=== PATIENT | female | born 1960 | race Caucasian/White ===

== ENCOUNTER 2024-05-22 00:18 | Emergency (ER) | payer MEDICAID, MEDICARE ==
[~2024-05-22] VITALS: Ht 157.5 cm; Wt 78.0 kg
[2024-05-22 00:21] VITALS: O2SAT 97
[2024-05-22] MEDS: MORPHINE SULFATE 4 MG/ML INJ (FOR IV/IM USE) IV STA (00:31)
[2024-05-22 01:53] LABS: BASOPHILS % 0.4 % (0.0-2.0); EOSINOPHILS % 1.6 % (0.0-5.0); HEMATOCRIT. 30.6 % (36.0-48.0); MEAN CORPUSCULAR HEMOGLOBIN 28.4 pg (28.0-32.0); MEAN CORPUSCULAR HGB CONC 32.6 g/dL (31.0-37.0); MEAN CORPUSCULAR VOLUME 87.1 fL (81.0-99.0); MEAN PLATELET VOLUME 8.5 fl (7.4-10.4); MONOCYTES % 8.2 % (2.0-8.0); NEUTROPHILS % 68.8 % (40.0-76.0); PLATELET 191 x1000/uL (130-400); RED BLOOD CELL COUNT 3.51 mill/uL (4.2-5.4); RED CELL DISTRIBUTION WIDTH 15.8 % (11.6-14.6); WHITE BLOOD COUNT 11.2 x1000/uL (4.5-11.0)
[2024-05-22 01:58] LABS: CHLORIDE 101 mEq/L (98-107); POTASSIUM 4.5 mEq/L (3.5-5.1); SODIUM 135 mEq/L (136-145)
[2024-05-22 01:59] LABS: CALCIUM 9.1 mg/dL (8.7-10.4); CARBON DIOXIDE 28 mEq/L (21-32)
[2024-05-22 02:04] LABS: CREATININE 1.3 mg/dL (0.6-1.0); GLUCOSE 224 mg/dL (70-105); UREA NITROGEN BLOOD 38 mg/dL (9-23)
[2024-05-22 02:05] LABS: TROPONIN I HIGH SENSITIVITY 13 ng/L (3.0-34)
[2024-05-22 02:06] LABS: ETHANOL BLOOD < 10 mg/dL (<10)
[2024-05-22 02:33] LABS: INR 0.9; PROTHROMBIN TIME 10.4 sec (9.6-11.0)
[2024-05-22 04:37] LABS: TROPONIN I HIGH SENSITIVITY 13 ng/L (3.0-34)
[2024-05-22] MEDS ORDERED: IOHEXOL-300 100 ML BOTTLE ONE (04:48)
[2024-05-22] MEDS: MORPHINE SULFATE 4 MG/ML INJ (FOR IV/IM USE) IV ONE (05:56)
[2024-05-22 11:28] LABS: BG BASE EXCESS 1.9 mmol/L (-2.0-3.0); BG CARBOXYHEMOGLOBIN 0.9 % (0.5-1.5); BG DEOXYHEMOGLOBIN 3.8 % (0.0-5.0); BG FRACTION INSPIRED OXYGEN 28; BG HCO3 ACT 27.9 mmol/L (21.0-28.0); BG METHEMOGLOBIN 0.3 % (0.5-1.5); BG OXYGEN SATURATION 96.2 % (94.0-98.0); BG PCO2 50.6 mmHg (32.0-45.0); BG PO2 86.9 mmHg (83.0-108.0); BG SAMPLE SITE RIGHT BRACHIAL; BG TOTAL HEMOGLOBIN 10.6 g/dL (12.0-16.0); BG VENT MODE NASAL CANNULA
[2024-05-22 11:41] LABS: CLARITY URINE CLOUDY (CLEAR); COLOR URINE YELLOW (YELLOW); GLUCOSE URINE NEGATIVE (NEGATIVE); KETONES URINE NEGATIVE (NEGATIVE); LEUKOCYTE ESTERASE URINE 2+ (NEGATIVE); NITRITE URINE NEGATIVE (NEGATIVE); OCCULT BLOOD URINE NEGATIVE (NEGATIVE); PH URINE 5.5 (4.5-8.0); PROTEIN URINE 1+ (NEGATIVE); SPECIFIC GRAVITY URINE 1.023 (1.005-1.030); UROBILINOGEN URINE 0.2 E.U./dL (0.2-1.0)
[2024-05-22] MEDS: DEXT 5%/0.45% NACL 1000ML 1,000 ML IV ONE (11:52)
[2024-05-22 11:58] LABS: *AMPHETAMINES SCREEN URINE NEGATIVE (NEGATIVE); *BARBITURATES SCREEN URINE NEGATIVE (NEGATIVE); *BENZODIAZEPINES SCREEN URINE PRESUMPTIVE POSITIVE (NEGATIVE); *COCAINE SCREEN URINE NEGATIVE (NEGATIVE); METHADONE URINE SCREEN NEGATIVE (NEGATIVE)
[2024-05-22 11:59] LABS: CANNABINOID URINE SCREEN NEGATIVE (NEGATIVE); ECSTASY MDMA SCREEN URINE NEGATIVE (NEGATIVE); OPIATES URINE SCREEN PRESUMPTIVE POSITIVE (NEGATIVE); PHENCYCLIDINE URINE SCREEN NEGATIVE (NEGATIVE)
[2024-05-22 12:14] LABS: BACTERIA URINE 4+; SQUAMOUS EPITHELIAL CELL URINE 1+ /lpf (RARE/1+)
[2024-05-22 12:16] LABS: WBC URINE 15-25 /hpf (0-2)
[2024-05-22 12:17] LABS: RBC URINE 0-2 /hpf (0-2)
[2024-05-22 14:00] VITALS: BP 129/62; PULSE 64; RESP 13; TEMP 36.55848; O2SAT 100
[2024-05-22] MEDS ORDERED: MORPHINE SULFATE 4 MG/ML INJ (FOR IV/IM USE) IV NR (16:42)
[2024-05-22] MEDS ORDERED: CEFTRIAXONE 1GM/50ML 50 ML IV SCH (17:00)
[2024-05-22] MEDS ORDERED: DICLOFENAC SODIUM 1% GEL 50GM TOP SCH (21:00)
[2024-05-22] MEDS ORDERED: DICLOFENAC SODIUM 75MG DR TABLET PO SCH (21:00)
== END 2024-05-22 17:30 | disposition left against medical advice (07) ==
LOC: ER 00:38 → EDBEDREQ 05:55 → ER 17:30
DX: M79.604 Pain in right leg (principal); E11.9 Type 2 diabetes mellitus without complications; I11.0 Hypertensive heart disease with heart failure; I50.9 Heart failure, unspecified
CPT/HCPCS: 80305; 80048; 81003; 80320; 82962; 85025; 85610; 87086; 84484; 36415; 71045; 70450; 74177; 82805; 82375; 93005; 96361; 96374; 96376; 99285; 36600; Q9967; J2270; Z7610 ×3; A4606; G0480